=== PATIENT | female | born 1965 | race Caucasian/White ===

== ENCOUNTER 2022-01-02 09:12 | Outpatient (CLI) | payer MEDICARE, OTHER, SELFPAY ==
--- NOTE | 2022-01-02 09:15 | CRLHL7_ITS ---
For Patients: As a result of the Century Cures Act, medical imaging exams and procedure reports are released immediately into your electronic medical record. You may view this report before your referring provider. If you have questions, please contact your health care provider. Indication: Low back pain with right leg radiation. Technique: T2, T1, and STIR sagittal as well as T1 and T2 axial sequences were obtained. No IV contrast. Comparison: 01/16/2020. Findings: Combined interbody instrumented bilateral posterolateral fusion from L3-L5, appearance unchanged from 01/16/2020. Alignment is anatomic and unchanged. No evidence for recent fracture, worrisome bone lesion or pars defect. No high grade central canal stenosis. The conus and cauda equina are unremarkable, with the tip of the cord at the L1 level. Stable trace spurring along both sacroiliac joints. T12-L1: The disc is negative. The foramina are patent. No change from 01/16/2020. L1-2 and L2-3: The discs and facets are negative. The foramina are patent. No interval change. L3-4 and L4-5: Interbody and posterolateral fusion as noted. Moderate-sized seroma filling the laminectomy beds. The foramina are patent. No interval change. L5-S1: Moderate facet and mild disc degenerative changes. Mild narrowing of both neural foramina. No interval change. Impression: 1. No change from 01/16/2020. No etiology for a new right lower extremity radiculopathy is localized on this exam. 2. Stable postop changes from a previous L3-L5 fusion. 3. Low-grade spondylosis elsewhere. Dictated by Дмитрий Huitron MD @ 01/02/2022 3:18:33 PM (Electronically Signed)
== END 2022-01-02 09:13 | disposition home or self-care (01) ==
LOC: MRI 09:12
PROVIDERS: PCP Family Medicine; Visit Provider Family Medicine
DX: M54.50 Low back pain, unspecified (principal); M51.37 Other intervertebral disc degeneration, lumbosacral region; M47.816 Spondylosis without myelopathy or radiculopathy, lumbar region; M54.16 Radiculopathy, lumbar region
CPT/HCPCS: 72148

== ENCOUNTER 2022-11-05 13:25 | Outpatient (CLI) | payer MEDICARE, OTHER, SELFPAY ==
--- NOTE | 2022-11-05 13:45 | MR_ITS ---
[facility] [address] [facility] [address] Phone:?[phone] Fax:?[phone] Referring Physician Information: Jose Angel Mata M.D. [id number] [address] Phone:?[phone] Fax:?[phone] Patient:Cruz Petty D.O.B:?1965 Sex:?Female Phone:?[phone] [facility] MRN:?[id number] Exam Date:?11/05/2022 ? EXAM: MRI of the RIGHT SHOULDER, without contrast CLINICAL INFORMATION: Female, 57 years old, with right shoulder pain, weakness, and limited range of motion. INDICATION: Evaluate for rotator cuff tear. PRIOR SURGERY: None reported. PLAIN FILMS: None available. COMPARISONS: No prior MRIs available. TECHNICAL INFORMATION: Using a 1.5T MR scanner and a localizing surface coil: coronal obliques: PD, T2, STIR sagittal obliques: PD, T2 axials: PD, T2 SEDATION: None CONTRAST: None FINDINGS: Bones: Proximal humerus: No fracture or marrow edema/pathology. No humeral Hill-Sachs or reverse Hill-Sachs lesion/impaction or contusion. Glenoid: No fracture or marrow edema/pathology. No osseous Bankart lesion. Rotator cuff and muscles/tendons: Supraspinatus: Moderate supraspinatus tendinopathy with a 5 x 8 mm area of intermediate grade partial-thickness anterior insertional footprint tearing (sagittal T2 series 8 image 8 and coronal STIR series 4 image 9). No full- thickness tear, retraction, or muscle atrophy. Infraspinatus: Mild infraspinatus tendinopathy, without tendon tear or muscle atrophy. Teres minor: No tendinopathy, tear or atrophy. Subscapularis: Mild to moderate tendinopathy of the superior distal subscapularis, without tendon tear or muscle atrophy. Deltoid: No strain or atrophy. Coracoacromial arch: Acromion morphology: The acromion has type II morphology. No discrete subacromial osseous spur or os acromiale. Acromiohumeral space: The acromiohumeral space measures 5.1 mm at its narrowest point. Coracohumeral space: The coracohumeral space is within normal limits. Acromioclavicular joint: Joint: Mild AC joint arthropathy, without significant inferior osteophytosis or evidence of supraspinatus impingement. Ligaments: Coracoclavicular ligaments are intact. Bursae: Subacromial-subdeltoid: Mild subacromial-subdeltoid bursitis. Subcoracoid: No convincing subcoracoid bursal thickening/bursitis. Biceps tendon: The long head of the biceps tendon is present within the bicipital groove. Mild-moderate tendinopathy and fraying of the intra-articular biceps long head tendon, without split/tear (sagittal PD series 7 images 11-15). Glenohumeral joint: Effusion/cyst: No significant glenohumeral joint effusion. Articular cartilage: Humeral head: No osteochondral abnormalities. Glenoid: No osteochondral abnormalities. Loose bodies: No discrete intra-articular body within the joint. Labrum:?Intrasubstance degeneration and fraying is present throughout the superior labrum, but is of doubtful clinical significance (coronal T2 series 6 images 11-16). Inferior glenohumeral ligament/axillary pouch:?Mild-moderate thickening of inferior capsuloligamentous structures (coronal PD series 5 images 12-18). Additionally, there is soft tissue thickening throughout the rotator interval (sagittal PD series 7 images 10-15). IMPRESSION: 1. Moderate supraspinatus tendinopathy with a 5 x 8 mm area of intermediate grade partial-thickness anterior insertional footprint tearing. 2. Mild-moderate subscapularis and mild infraspinatus tendinopathy, without tear. 3. Mild narrowing of the acromiohumeral space with mild subacromial-subdeltoid bursitis. While there is mild AC joint arthropathy, there is no evidence of impingement at the AC joint. 4. Findings in keeping with any clinical symptoms of adhesive capsulitis. 5. Intrasubstance degeneration and fraying of the superior labrum, which is of doubtful clinical significant. 6. No full-thickness chondral defect or evidence of glenohumeral joint osteoarthritis. BC Electronically signed on 11/05/2022 7:30:00 PM by Rai Hathaway M.D.
== END 2022-11-05 13:26 | disposition home or self-care (01) ==
PROVIDERS: PCP Family Medicine; Visit Provider Family Medicine
DX: M25.511 Pain in right shoulder (principal); M75.101 Unspecified rotator cuff tear or rupture of right shoulder, not specified as traumatic; M75.01 Adhesive capsulitis of right shoulder
CPT/HCPCS: 73221

== ENCOUNTER 2022-12-04 08:00 | Outpatient (RCR) | payer MEDICARE, OTHER, SELFPAY | END 2023-02-03 13:44 | disposition home or self-care (01) | PROVIDERS: PCP Family Medicine; Visit Provider Family Medicine | DX: M75.01 Adhesive capsulitis of right shoulder (principal); M75.101 Unspecified rotator cuff tear or rupture of right shoulder, not specified as traumatic; Z51.89 Encounter for other specified aftercare | CPT/HCPCS: 97110; 97140; 97161 ==

== ENCOUNTER 2024-08-15 13:05 | Outpatient (CLI) | payer MEDICARE, OTHER, SELFPAY | END 2024-08-15 13:06 | disposition home or self-care (01) | PROVIDERS: PCP Family Medicine; Visit Provider Family Medicine | DX: E55.9 Vitamin D deficiency, unspecified (principal); E78.00 Pure hypercholesterolemia, unspecified; R53.83 Other fatigue; Z79.899 Other long term (current) drug therapy | CPT/HCPCS: 80053; 80061; 82306; 82607 ==

== ENCOUNTER 2024-08-26 12:35 | Outpatient (CLI) | payer MEDICARE, OTHER, SELFPAY ==
--- NOTE | 2024-08-26 13:00 | CRLHL7_ITS ---
For Patients: As a result of the Century Cures Act, medical imaging exams and procedure reports are released immediately into your electronic medical record. You may view this report before your referring provider. If you have questions, please contact your health care provider. INDICATION: Lung cancer screening. TECHNIQUE: Low-dose noncontrast CT images of the chest. Dose reduction techniques used. COMPARISON: None. FINDINGS: No focal consolidation, pleural effusion, or pneumothorax. Solid 4 mm nodule along the left major fissure (series 3 image 73). Mild paraseptal emphysema right apex. Heart size is normal. No pericardial effusion. Coronary artery atherosclerotic calcifications. No mediastinal or hilar lymphadenopathy. Limited images through the upper abdomen are unremarkable. Mild thoracic spondylosis. No aggressive osseous lesions. IMPRESSION: Small left perifissural pulmonary nodule. Lung rads category 2, benign. Continue annual screening with low-dose chest CT in 12 months. Please note that all CT scans at this facility use dose modulation, iterative reconstruction, and/or weight-based dosing when appropriate to reduce radiation dose to as low as reasonably achievable. Dictated by Willie Church MD @ 08/27/2024 4:29:59 PM (Electronically Signed)
== END 2024-08-26 12:36 | disposition home or self-care (01) ==
LOC: CT 12:38
PROVIDERS: PCP Family Medicine; Visit Provider Family Medicine
DX: Z12.2 Encounter for screening for malignant neoplasm of respiratory organs (principal); R91.8 Other nonspecific abnormal finding of lung field; Z87.891 Personal history of nicotine dependence; Z98.1 Arthrodesis status; M47.896 Other spondylosis, lumbar region; M54.10 Radiculopathy, site unspecified
CPT/HCPCS: 71271; 72148

== ENCOUNTER 2024-11-02 10:02 | Outpatient (CLI) | payer MEDICARE, OTHER, SELFPAY ==
--- NOTE | 2024-11-02 10:15 | CRLHL7_ITS ---
For Patients: As a result of the Century Cures Act, medical imaging exams and procedure reports are released immediately into your electronic medical record. You may view this report before your referring provider. If you have questions, please contact your health care provider. INDICATION: BILATERAL SCREENING MAMMOGRAM, ASYMPTOMATIC 59 Y/O FEMALE COMPARISON: 12/13/21, 05/24/13, 07/25/11 TECHNIQUE: CC and MLO views were obtained. These mammographic images have been obtained using full-field digital technique. These mammographic images were interpreted with the benefit of computer aided detection and tomosynthesis. BREAST COMPOSITION: There are scattered areas of fibroglandular density. FINDINGS: No suspicious findings. ASSESSMENT: BI-RADS 1 Negative RECOMMENDATION: Annual screening mammogram. A lay language report of this examination will be provided to the patient. Dictated by: Ean Magallon MD @ 11/10/2024 11:00:48 (Electronically Signed)
== END 2024-11-02 10:03 | disposition home or self-care (01) ==
LOC: MAMMO 10:03
PROVIDERS: PCP Family Medicine; Visit Provider Family Medicine
DX: Z12.31 Encounter for screening mammogram for malignant neoplasm of breast (principal)
CPT/HCPCS: 77063; 77067